=== PATIENT | male | born 1985 | race Two or more races ===

== ENCOUNTER 2017-06-03 15:01 | Emergency (ER) | payer MEDICAID ==
[2017-06-03] MEDS ORDERED: HYDROmorphone 1 MG/ML Syringe IM ONE (15:48)
--- NOTE | 2017-06-03 17:17 | EDM.PDOC ---
ED HPI GENERAL MEDICAL PROBLEM - General Chief Complaint: Lower Extremity Injury/Pain Stated Complaint: R KNEE INJURY Time Seen by Provider: 06/03/17 16:07 Source of Information: Reports: Patient History Limitations: Reports: No Limitations - History of Present Illness INITIAL COMMENTS - FREE TEXT/NARRATIVE: 32 year old male presents for evaluation and treatment of an injury to the right knee. Injury occurred while at work today around 11am. Patient reports he stepped out of a grain bin, approximately 16 inches off the ground, when he planted his foot and suddenly felt a pop to the right knee. He denies any twisting or abnormal movement that may have caused the injury. Reports pain and swelling to the right knee. Denies any numbness, tingling, wounds or bruising. He has tried ice and motrin prior to arrival with little relief. Patient reports he broke his femur about 7 months ago. He require a amber. This was done in [place]. Patient is from [place]. Previous orthopedic surgeries have taken place in [place]. He is already established with a provider there and they are aware of his most recent injury. Onset: Today, Sudden Location: Reports: Lower Extremity, Right Right Knee Pain Score (Numeric/FACES): 6 - Related Data Allergies Allergy/AdvReac Type Severity Reaction Status Date / Time No Known Allergies Allergy Verified 06/03/17 15:24 Home Meds: Home Meds Acetaminophen/oxyCODONE [Percocet 325-5 MG] 1 tab PO Q4H PRN #20 tablet [Rx] Past Medical History - Past Surgical History Musculoskeletal Surgical History: Reports: Other (See Below) Other Musculoskeletal Surgeries/Procedures:: femur and knee fracture with amber placed about 7 months ago Social & Family History - Tobacco Use Smoking Status *Q: Current Every Day Smoker Years of Tobacco use: 16 Packs/Tins Daily: 1.5 - Caffeine Use Caffeine Use: Reports: Soda, Tea - Recreational Drug Use Recreational Drug Use: No Review of Systems - Review of Systems Review Of Systems: See Below Musculoskeletal: Reports: Joint Pain (right knee), Joint Swelling (right knee) Skin: Denies: Erythema, Wound Neurological: Reports: Difficulty Walking. Denies: Numbness, Tingling ED EXAM, GENERAL - Physical Exam Exam: See Below Exam Limited By: No Limitations General Appearance: Alert, WD/WN, No Apparent Distress Respiratory/Chest: No Respiratory Distress, Lungs Clear, Normal Breath Sounds Cardiovascular: Normal Peripheral Pulses, Regular Rate, Rhythm, No Murmur Peripheral Pulses: 2+: Posterior Tibial (L), Posterior Tibial (R), Dorsalis Pedis (L), Dorsalis Pedis (R) Extremities: Normal Capillary Refill, Joint Swelling (right knee has severe swelling; approximately softball size), Limited Range of Motion (flexion of the right knee to about 90 degrees, extension of the right knee to about 160 degrees ), Other (tenderness to the right knee greatest to the lateral knee). No: Increased Warmth Neurological: Alert, Oriented Psychiatric: Normal Affect, Normal Mood Skin Exam: Warm, Dry, Normal Color. No: Ecchymosis, Erythema Course - Vital Signs Last Recorded V/S: Last Vital Signs Temp 36.6 C 06/03/17 15:28 Pulse 62 06/03/17 18:20 Resp 18 06/03/17 18:20 BP 117/73 06/03/17 18:20 Pulse Ox 99 06/03/17 18:20 - Orders/Labs/Meds Meds: Medications Discontinued Medications Generic Name Dose Route Start Last Admin Trade Name Freq PRN Reason Stop Dose Admin Hydromorphone HCl 1 mg 06/03/17 15:48 06/03/17 16:09 Dilaudid IM 06/03/17 15:49 1 mg ONETIME ONE Administration - Radiology Interpretation Free Text/Narrative:: xray of the right knee shows soft tissue swelling. No acute fracture or dislocations. Hardware in place without apparent movement. Reviewed by myself and Dr. Jacobo. - Re-Assessments/Exams Free Text/Narrative Re-Assessment/Exam: 06/03/17 17:26 I reviewed the xray results with the patient. I had radiology make him a disc. I feel he likely tore a ligament, however, examination is difficult due to the swelling and pain. He will likely require an MRI. I will have him follow-up with his orthopedic provider in [place]. Discharge instructions as documented. Departure - Departure Time of Disposition: 17:27 Disposition: Home, Self-Care 01 Condition: Fair Clinical Impression: Swelling of knee joint, right, Right knee injury - Discharge Information Prescriptions: Acetaminophen/oxyCODONE [Percocet 325-5 MG] 1 tab PO Q4H PRN #20 tablet PRN Reason: Pain Instructions: Knee Pain Referrals: Mason Pimentel MD [Primary Care Provider] - Forms: ED Department Discharge Additional Instructions: You were given medication in the ER that affect your ability to drive and operate machinery. No driving or operating machinery within 12 hours of taking narcotic pain medication. Use crutches at all time. Use an Chin bandage or your knee brace for support and compression to help with the swelling. elevate the leg as much as you are able to. Ice the knee 5 or 6 times a day for 10-15 minutes. Use [id number] ibuprofen as needed for pain. For pain not relieved by ibuprofen may take Percocet 1 tab every 4-6 hours for severe pain. Do not drive or operate machinery within 12 hours taking the Percocet. Percocet can be habit- forming, recommend taking as few of these as needed to control your pain. Follow-up with your orthopedic provider this week. Please return to the ER hif your symptoms change or worsen.
[2017-06-03 18:34] VITALS: BP 117/73
--- NOTE | 2017-06-06 07:53 | CR ---
Right knee: Four views of the right knee were obtained. Large joint effusion is seen. Intramedullary amber affixing previous distal femur fracture is seen. Bony structures are somewhat osteopenic likely on a disuse basis. Medial and lateral joint compartments are maintained in height. No discrete fracture or other abnormality is appreciated. Impression: 1. Large joint effusion. 2. Other findings as described above. No acute bony abnormality is identified. Diagnostic code #3
== END 2017-06-03 18:20 | disposition home or self-care (01) ==
LOC: JD.ED 15:01 → SUPCPDRO 15:01 → JD.ED 18:20
DX: M25.461 Effusion, right knee (principal); Y99.0 Civilian activity done for income or pay; X50.0XXA Overexertion from strenuous movement or load, initial encounter; F17.210 Nicotine dependence, cigarettes, uncomplicated
CPT/HCPCS: 73564; 96372; 99284; J1170; 99283